=== PATIENT | female | born 1965 | race Caucasian/White ===

== ENCOUNTER → 2018-11-22 | Emergency (ER) | payer MEDICAID ==
[~2018-11-22] VITALS: Ht 182.9 cm; Wt 126.0 kg
[~2018-11-22] MED LIST: CEPH-572 PO; SULF1TAB48 PO
[2018-11-22 12:42] VITALS: BP 178/95
== END | disposition home or self-care (01) ==
LOC: ER 12:39
DX: L02.01 Cutaneous abscess of face (principal); L03.211 Cellulitis of face; I11.0 Hypertensive heart disease with heart failure; I50.9 Heart failure, unspecified; J45.909 Unspecified asthma, uncomplicated; E03.9 Hypothyroidism, unspecified; F15.90 Other stimulant use, unspecified, uncomplicated; Z98.890 Other specified postprocedural states; Z79.899 Other long term (current) drug therapy
CPT/HCPCS: 99283

== ENCOUNTER 2020-09-14 12:10 | Emergency (ER) | payer MEDICAID ==
[~2020-09-14] VITALS: Ht 180.3 cm; Wt 129.1 kg
[2020-09-14 12:17] VITALS: BP 129/88
[2020-09-14] MEDS ORDERED: HYDROcodone/acetaminophen 10/325mg tab PO ONE (14:20)
[2020-09-14] MEDS ORDERED: HYDR-3965 PO (14:55)
[2020-09-17] MEDS ORDERED: HYDR25TA4 PO (14:26)
[2020-09-17] MEDS ORDERED: FLUT1BLS11 INH (14:26)
[2020-09-17] MEDS ORDERED: OMEP-50 PO (14:26)
[2020-09-17] MEDS ORDERED: HYDR-3964 PO (14:26)
[2020-09-17] MEDS ORDERED: ALBU90AE2 INH (14:26)
[2020-09-17] MEDS ORDERED: ESCI-8 PO (14:26)
[2020-09-17] MEDS ORDERED: LEVO175T2 PO (14:26)
== END 2020-09-14 15:07 | disposition home or self-care (01) ==
LOC: ER 12:12
DX: S82.002A Unspecified fracture of left patella, initial encounter for closed fracture (principal); I50.9 Heart failure, unspecified; I11.0 Hypertensive heart disease with heart failure; J45.909 Unspecified asthma, uncomplicated; F15.90 Other stimulant use, unspecified, uncomplicated; E03.9 Hypothyroidism, unspecified; Z86.2 Personal history of diseases of the blood and blood-forming organs and certain disorders involving the immune mechanism; Z88.8 Allergy status to other drugs, medicaments and biological substances; Z79.899 Other long term (current) drug therapy; W08.XXXA Fall from other furniture, initial encounter; Z91.81 History of falling; Y93.89 Activity, other specified; Y92.89 Other specified places as the place of occurrence of the external cause; Y99.8 Other external cause status
CPT/HCPCS: 29505; 73564; 99284; 99285

== ENCOUNTER 2020-09-21 09:10 | Day surgery (SDC) | payer MEDICAID ==
[2020-09-17 11:38] LABS: BASOPHILS # (AUTO) 0.1 X10'3 (0-0.2); BASOPHILS % (AUTO) 0.7 % (0-1); EOSINOPHILS # (AUTO) 0.6 X10'3 (0-0.9); EOSINOPHILS % (AUTO) 5.4 % (0-6); LYMPHOCYTES # (AUTO) 1.8 X10'3 (1.1-4.8); LYMPHOCYTES % (AUTO) 17.3 % (21-51); MEAN CORPUSCULAR HEMOGLOBIN 25.8 PG (27.0-31.0); MEAN CORPUSCULAR VOLUME 80.8 FL (78-98); MEAN PLATELET VOLUME 6.6 FL (7.4-10.4); MONOCYTES # (AUTO) 1.2 X10'3 (0-0.9); MONOCYTES % (AUTO) 11.7 % (2-12); NEUTROPHILS # (AUTO) 6.7 X10'3 (1.8-7.7); NEUTROPHILS % (AUTO) 64.9 % (42-75); PRE OP HEMATOCRIT 39.1 % (35.0-45.0); PRE OP HEMOGLOBIN 12.5 g/dL (12.0-16.0); PRE OP PLATELET COUNT 371 X10'3 (140-440); RED BLOOD COUNT 4.85 X10'6 (4.20-5.60)
[2020-09-17 11:57] LABS: ALBUMIN 3.3 G/DL (3.4-5.0); ALBUMIN/GLOBULIN RATIO 0.8 (1.1-1.5); ALKALINE PHOSPHATASE 110 IU/L (46-116); BLOOD UREA NITROGEN 17 MG/DL (7-18); CALCIUM 10.1 MG/DL (8.5-10.1); CHLORIDE 100 MMOL/L (99-107); CREATININE 1.06 MG/DL (0.40-0.90); PRE OP ALT 27 U/L (30-65); PRE OP ANION GAP 5 (8-16); PRE OP AST 23 U/L (10-37); PRE OP BILIRUB, TOTAL 0.6 MG/DL (0.0-1.0); PRE OP GLUCOSE 142 MG/DL (70-104); PRE OP SODIUM 140 MMOL/L (135-145); TOTAL PROTEIN 7.6 G/DL (6.4-8.2); eGFR 54 ML/MIN
[~2020-09-21] VITALS: Ht 180.3 cm; Wt 126.1 kg
[~2020-09-21 09:10] MED LIST changes: +ALBU90AE2 INH; -CEPH-572 PO; +ESCI-8 PO; +FLUT1BLS11 INH; +HYDR-3964 PO; +HYDR25TA4 PO; +LEVO175T2 PO; +OMEP-50 PO; -SULF1TAB48 PO; +albuterol 2.5 MG/3 ML nebule NEB ONE; +ceFAZolin inj. 3,000 MG in normal saline 100ml IV soln 100 ML IV ONE; +famotidine 20mg tablet PO ONE; +meperidine/PF 25mg/ml syringe IV PRN; +morphine 2 MG/ML inj. syringe IV PRN; +morphine 4 MG/ML inj SYRINge IV PRN; +ondansetron/PF 4mg/2ml inj IV PRN; +proCHLORperazine 10 MG/2 ml inj IV PRN; +ringers solution, lacted 1,000 ML IV SCH; +vancomycin 1,500 MG in NS 300ml IV soln IV ONE
[2020-09-21] MEDS ORDERED: LIDOcaine 1% (10mg/ml) 2ml vial ONE (10:06)
[2020-09-21 10:57] LABS: ISTAT HGB 13.9 g/dl (12.0-16.0); ISTAT IONIZED CALCIUM 1.32 mmol/L (1.03-1.32); ISTAT K 3.5 mmol/L (3.5-5.1)
[2020-09-21 11:21] VITALS: BP 139/79
[2020-09-21] MEDS ORDERED: HYDROcodone/acetaminophen 5mg/325mg tablet PO ONE ×2 (12:15→15:10)
[2020-09-21] MEDS ORDERED: fentaNYL/PF 50MCG/1 ML 2ML syringe ONE ×2 (12:37→13:14)
[2020-09-21] MEDS ORDERED: MIDAZolam 1 MG/ML 5ML VIAL ONE (12:37)
[2020-09-21] MEDS ORDERED: LIDOcaine 2% (20mg/ml) 5ml vial ONE ×2 (12:39→12:40)
[2020-09-21] MEDS ORDERED: propofol inj 20 ML IV ONE ×2 (12:39→12:40)
[2020-09-21] MEDS ORDERED: ROPIVAcaine 0.5% (5mg/ml) 30ml vial ONE (12:39)
[2020-09-21] MEDS ORDERED: dexamethasone sod phosphate 4mg/ml inj. ONE (12:39)
[2020-09-21] MEDS ORDERED: ondansetron/PF 4mg/2ml inj ONE (13:37)
[2020-09-21 14:00] VITALS: BP_SYST 162
--- NOTE | 2020-09-21 14:00 | NUR ---
Received from OR via [facility] , accompanied by Anesthesiologist DR DÍAZ and report given by Anesthesiolgist. PT SLEEPING. DRSG TO LEFT LEG CDI W/ KNEE IMMOBILIZER IN PLACE. STRONG PALPABLE PEDAL PULSE TO RIGHT FOOT.
[2020-09-21 14:10] VITALS: BP 147/98
[2020-09-21 14:20] VITALS: BP 137/68
[2020-09-21 14:30] VITALS: BP 148/92
--- NOTE | 2020-09-21 15:40 | NUR ---
PT WAS DC'D TO HOME SAFELY VIA W/C TO VEHICLE DRIVEN BY PT FAMILY. KNEE BRACE IN TACT, BRODYG CDI. PT COMFORTABLE, NORCO GIVEN FOR SOME MILD PAIN PER DR. ECHEVERRIA ORDERS. ALL BELONGINGS W/ PT UPON DC TO HOME. PT STATES UNDERSTANDING REGARDING ALL INSTRUCTIONS. INSTRUCTIONS ALSO REVIEWED W/ PT FAMILY.
== END 2020-09-21 15:40 | disposition home or self-care (01) ==
LOC: PAS 09:10
PROVIDERS: ATTEND Orthopaedic Surgery
DX: S82.032A Displaced transverse fracture of left patella, initial encounter for closed fracture (principal); Z20.822 Contact with and (suspected) exposure to COVID-19; G89.18 Other acute postprocedural pain; J45.909 Unspecified asthma, uncomplicated; F32.9 Major depressive disorder, single episode, unspecified; M17.0 Bilateral primary osteoarthritis of knee; E03.9 Hypothyroidism, unspecified; I10 Essential (primary) hypertension; K21.9 Gastro-esophageal reflux disease without esophagitis; E66.01 Morbid (severe) obesity due to excess calories; Z68.41 Body mass index [BMI] 40.0-44.9, adult; F17.210 Nicotine dependence, cigarettes, uncomplicated; Z98.890 Other specified postprocedural states; Z88.8 Allergy status to other drugs, medicaments and biological substances; Z79.899 Other long term (current) drug therapy; Z82.49 Family history of ischemic heart disease and other diseases of the circulatory system; Z83.6 Family history of other diseases of the respiratory system; W19.XXXA Unspecified fall, initial encounter; Y93.89 Activity, other specified; Y92.89 Other specified places as the place of occurrence of the external cause; Y99.8 Other external cause status
CPT/HCPCS: 27524; 36415; 64447; 71045; 73560; 76000; 76942; 80047; 80053; 85025; 87635; 93005; 94640; A6222; C1713; J0690; J1100; J2001; J2250; J2405; J2704; J3010; J3370; J7040; J7120; A4618; A6449; A7000; J2795

== ENCOUNTER 2020-11-25 10:38 | Day surgery (SDC) | payer MEDICAID ==
[2020-11-17 16:39] LABS: BASOPHILS # (AUTO) 0.1 X10'3 (0-0.2); EOSINOPHILS # (AUTO) 0.5 X10'3 (0-0.9); EOSINOPHILS % (AUTO) 5.7 % (0-6); LYMPHOCYTES # (AUTO) 1.7 X10'3 (1.1-4.8); LYMPHOCYTES % (AUTO) 20.7 % (21-51); MEAN CORPUSCULAR HEMOGLOBIN 25.1 PG (27.0-31.0); MEAN CORPUSCULAR HGB CONC 32.1 g/dL (33.0-36.5); MEAN CORPUSCULAR VOLUME 78.1 FL (78-98); MEAN PLATELET VOLUME 6.7 FL (7.4-10.4); MONOCYTES % (AUTO) 11.9 % (2-12); NEUTROPHILS # (AUTO) 5.1 X10'3 (1.8-7.7); NEUTROPHILS % (AUTO) 60.7 % (42-75); PRE OP HEMATOCRIT 40.6 % (35.0-45.0); PRE OP PLATELET COUNT 381 X10'3 (140-440); RED CELL DISTRIBUTION WIDTH 15.4 % (11.5-14.5)
[2020-11-17 16:48] LABS: ALBUMIN 3.6 G/DL (3.4-5.0); ALBUMIN/GLOBULIN RATIO 0.9 (1.1-1.5); ALKALINE PHOSPHATASE 118 IU/L (46-116); BLOOD UREA NITROGEN 18 MG/DL (7-18); BUN/CREATININE RATIO 16.5 (6.6-38.0); CALCIUM 10.5 MG/DL (8.5-10.1); CHLORIDE 102 MMOL/L (99-107); CREATININE 1.09 MG/DL (0.40-0.90); PRE OP ALT 21 U/L (30-65); PRE OP ANION GAP 8 (8-16); PRE OP AST 22 U/L (10-37); PRE OP BILIRUB, TOTAL 0.5 MG/DL (0.0-1.0); PRE OP GLUCOSE 114 MG/DL (70-104); PRE OP SODIUM 145 MMOL/L (135-145); TOTAL CARBON DIOXIDE 34.8 MMOL/L (24-32); TOTAL PROTEIN 7.7 G/DL (6.4-8.2); eGFR 52 ML/MIN
[2020-11-17 16:51] LABS: PRE OP POTASSIUM 2.6 MMOL/L (3.4-5.1)
[~2020-11-25] VITALS: Ht 152.4 cm; Wt 122.9 kg
[~2020-11-25 10:38] MED LIST changes: +BUPR300T86 PO; +MULT-1085 PO; +MULT-1130 PO; -albuterol 2.5 MG/3 ML nebule NEB ONE; +ceFAZolin 1GM/D5W- ADD-VANTAGE 50 ML IV ONE; +cefazolin/dext.iso 2gm/100ml 100 ML IV ONE; +clindamycin-Cleocin 900mg/D5W 50 ML IV ONE; -meperidine/PF 25mg/ml syringe IV PRN; -morphine 2 MG/ML inj. syringe IV PRN; -morphine 4 MG/ML inj SYRINge IV PRN; -ondansetron/PF 4mg/2ml inj IV PRN; -proCHLORperazine 10 MG/2 ml inj IV PRN; -vancomycin 1,500 MG in NS 300ml IV soln IV ONE
[2020-11-25 10:50] VITALS: BP 144/76
[2020-11-25] MEDS ORDERED: albuterol 2.5 MG/3 ML nebule NEB ONE (11:15)
[2020-11-25] MEDS ORDERED: triamcinolone acetonide 40mg/ml inj ONE (11:22)
[2020-11-25] MEDS ORDERED: BUPIVAcaine/PF 2.5 mg/ml (0.25%) 30ml vial ONE (11:23)
[2020-11-25 11:42] LABS: ISTAT CREATININE 0.8 mg/dL (0.6-1.1); ISTAT HGB 12.9 g/dl (12.0-16.0); ISTAT IONIZED CALCIUM 1.26 mmol/L (1.03-1.32); ISTAT K 3.5 mmol/L (3.5-5.1)
[2020-11-25] MEDS ORDERED: dexamethasone sod phosphate 10mg/ml inj ONE (12:08)
[2020-11-25] MEDS ORDERED: sevoflurane 250ml liquid IH ONE (12:08)
[2020-11-25] MEDS ORDERED: midazolam 1 mg/ML 2ml injection ONE (12:13)
[2020-11-25] MEDS ORDERED: fentaNYL/PF 50MCG/1 ML 2ML syringe ONE (12:13)
[2020-11-25] MEDS ORDERED: LIDOcaine 2% (20mg/ml) 5ml vial ONE (12:22)
[2020-11-25] MEDS ORDERED: propofol inj 20 ML IV ONE (12:22)
[2020-11-25] MEDS ORDERED: ondansetron/PF 4mg/2ml inj ONE (12:23)
[2020-11-25] MEDS ORDERED: meperidine/PF 25mg/ml syringe ONE (12:28)
[2020-11-25 13:22] VITALS: BP 127/76
--- NOTE | 2020-11-25 13:22 | NUR ---
Received from OR via [facility], accompanied by Anesthesiologist BHAVNA and report given by Anesthesiolgist. Pt denies pain, LR at 100mL/HR, positive dorsalis pedis pulses in R Leg, Bias wrap CDI, SCDs in use, VSS Addendum: 11/25/20 at 1345 by Fredy Gonzalez RN, RN Amended: Links added.
[2020-11-25 13:30] VITALS: BP 125/70
[2020-11-25 13:40] VITALS: BP 136/78
[2020-11-25 13:50] VITALS: BP 139/73
[2020-11-25] MEDS ORDERED: ondansetron/PF 4mg/2ml inj IV PRN (13:55)
[2020-11-25] MEDS ORDERED: proCHLORperazine 10 MG/2 ml inj IV PRN (13:55)
[2020-11-25] MEDS ORDERED: meperidine/PF 25mg/ml syringe IV PRN ×3 (13:55)
[2020-11-25] MEDS ORDERED: morphine 2 MG/ML inj. syringe IV PRN (13:55)
[2020-11-25] MEDS ORDERED: morphine 4 MG/ML inj SYRINge IV PRN (13:55)
[2020-11-25] MEDS ORDERED: ringers solution, lacted 1,000 ML IV SCH (13:55)
[2020-11-25 14:00] VITALS: BP 135/69
--- NOTE | 2020-11-25 14:02 | NUR ---
ALL DISCHARGE CRITERIA HAS BEEN MET. VSS, PAIN AT A TOLERABLE LEVEL, VOIDING AND ABLE TO SAFELY AMBULATE AND TRANSFER SELF. IV TAKEN OUT WITHOUT ANY COMPLICATIONS. ALL DISCHARGE INSTRUCTIONS COVERED WITH PATIENT AND ALL QUESTIONS ANSWERED. PATIENT TAKEN OUT VIA WHEELCHAIR TO PERSONAL VEHICLE WHERE FAMILY/FRIEND DROVE PATIENT HOME. Addendum: 11/25/20 at 1421 by Fredy Gonzalez RN, RN Amended: Links added.
== END 2020-11-25 14:02 | disposition home or self-care (01) ==
LOC: PAS 10:38
PROVIDERS: ATTEND Orthopaedic Surgery
DX: S83.231A Complex tear of medial meniscus, current injury, right knee, initial encounter (principal); S83.271A Complex tear of lateral meniscus, current injury, right knee, initial encounter; M17.11 Unilateral primary osteoarthritis, right knee; X58.XXXA Exposure to other specified factors, initial encounter; Y93.89 Activity, other specified; Y92.89 Other specified places as the place of occurrence of the external cause; Y99.8 Other external cause status; J44.9 Chronic obstructive pulmonary disease, unspecified; E66.01 Morbid (severe) obesity due to excess calories; I10 Essential (primary) hypertension; E03.9 Hypothyroidism, unspecified; M25.561 Pain in right knee
CPT/HCPCS: 29873; 29879; 29880; 36415; 80047; 80053; 85025; 94640; J0690; J1100; J2001; J2175; J2250; J2405; J2704; J3010; J3301; J3490; U0003; U0005; A4215; A4618; A6250; A6449; A7000; J7120

== ENCOUNTER 2021-12-29 12:23 | Emergency (ER) | payer MEDICAID ==
[~2021-12-29] VITALS: Ht 180.3 cm; Wt 120.5 kg
[~2021-12-29 12:23] MED LIST changes: -OMEP-50 PO; +OMEP20CA16 PO; -ceFAZolin 1GM/D5W- ADD-VANTAGE 50 ML IV ONE; -ceFAZolin inj. 3,000 MG in normal saline 100ml IV soln 100 ML IV ONE; -cefazolin/dext.iso 2gm/100ml 100 ML IV ONE; -clindamycin-Cleocin 900mg/D5W 50 ML IV ONE; -famotidine 20mg tablet PO ONE; -ringers solution, lacted 1,000 ML IV SCH
[2021-12-29 13:09] LABS: BASOPHILS % (AUTO) 0.6 % (0-1); EOSINOPHILS # (AUTO) 0.4 X10'3 (0-0.9); EOSINOPHILS % (AUTO) 6.2 % (0-6); HEMATOCRIT 44.2 % (35.0-45.0); HEMOGLOBIN 14.7 g/dl (12.0-16.0); LYMPHOCYTES # (AUTO) 1.3 X10'3 (1.1-4.8); LYMPHOCYTES % (AUTO) 17.9 % (21-51); MEAN CORPUSCULAR HEMOGLOBIN 28.3 PG (27.0-31.0); MEAN CORPUSCULAR HGB CONC 33.2 g/dL (33.0-36.5); MEAN CORPUSCULAR VOLUME 85.3 FL (78-98); MEAN PLATELET VOLUME 6.6 FL (7.4-10.4); MONOCYTES # (AUTO) 1.2 X10'3 (0-0.9); MONOCYTES % (AUTO) 16.5 % (2-12); NEUTROPHILS # (AUTO) 4.2 X10'3 (1.8-7.7); NEUTROPHILS % (AUTO) 58.8 % (42-75); PLATELET COUNT 273 X10'3 (140-440); RED BLOOD COUNT 5.18 X10'6 (4.20-5.60); RED CELL DISTRIBUTION WIDTH 14.7 % (11.5-14.5); WHITE BLOOD COUNT 7.1 X10'3 (4.5-11.0)
[2021-12-29 13:22] LABS: PLATELET ESTIMATE NORMAL; TOTAL CELLS COUNTED 100
[2021-12-29 13:23] LABS: ALANINE AMINOTRANSFERASE 29 U/L (12-78); ALBUMIN 3.7 G/DL (3.4-5.0); ALBUMIN/GLOBULIN RATIO 0.9 (1.1-1.5); ALKALINE PHOSPHATASE 89 IU/L (46-116); ANION GAP 10 (8-16); ASPARTATE AMINO TRANSFERASE 18 U/L (10-37); BILIRUBIN,TOTAL 0.3 MG/DL (0.1-1.0); BLOOD UREA NITROGEN 34 MG/DL (7-18); BUN/CREATININE RATIO 26.8 (6.6-38.0); CALCIUM 10.1 MG/DL (8.5-10.1); CHLORIDE 101 MMOL/L (99-107); CREATININE 1.27 MG/DL (0.40-0.90); GLUCOSE 127 MG/DL (70-104); POTASSIUM 3.7 MMOL/L (3.5-5.1); SODIUM 138 MMOL/L (135-145); TOTAL CARBON DIOXIDE 26.8 MMOL/L (24-32); TOTAL PROTEIN 7.9 G/DL (6.4-8.2); eGFR 43 ML/MIN
[2021-12-29] MEDS ORDERED: orphenadrine citrate 60mg/2ml inj. IM ONE (19:50)
[2021-12-29] MEDS ORDERED: ketorolac trometh inj. 60 MG/2 ML VIAL IM ONE (19:50)
[2021-12-29] MEDS ORDERED: ORPH100T2 PO ×3 (19:59→20:16)
[2021-12-29 20:05] VITALS: BP 143/91
== END 2021-12-29 20:20 | disposition home or self-care (01) ==
LOC: ER 12:23
DX: M62.838 Other muscle spasm (principal); M25.511 Pain in right shoulder; I11.0 Hypertensive heart disease with heart failure; I50.9 Heart failure, unspecified; J45.909 Unspecified asthma, uncomplicated; E03.9 Hypothyroidism, unspecified; F15.90 Other stimulant use, unspecified, uncomplicated; Z86.2 Personal history of diseases of the blood and blood-forming organs and certain disorders involving the immune mechanism; Z79.899 Other long term (current) drug therapy; Z88.8 Allergy status to other drugs, medicaments and biological substances
CPT/HCPCS: 36415; 71045; 80053; 83880; 84484; 85007; 85025; 93005; 96372; 99285; J1885; J2360